=== PATIENT | female | born 1970 | race Caucasian/White ===

== ENCOUNTER → 2019-09-27 15:41 | Outpatient (CLI) | payer OTHER, SELFPAY ==
--- NOTE | 2019-09-27 15:46 | DIET.PN ---
Dietary Progress Note Assessment: 49y F referred to nutrition for new onset DM2 c A1c 7.2 and Fasting BG 183 WT: 386# pt was 400# on 08/06/2019 office visit Labs: A1c 7.2, FBG 183 Pt was shocked that she had DM2, still is in a bit of denial but has made major changes since August including: was drinking mochas daily, 3 pepsi's per day, snacking on cookie dough Instead has been experimenting with low carb diet and has lost 14# in 2mo. Pt has strong sense of smell which leads her to be a picky eater okay with hiding small pieces veggies in things to eat more doesn't like water but okay iced and super cold B: doesn't eat breakfast except sat/sun L: homemade taco salad (used to go to [employer] [facility] and [employer]) D: steak salad (used to have stuffing, corn, green beans, meat) Acceptable Foods: Vegetable: cooked: corn, green beans Raw: all lettuces, cucumber, green zucchini, onion, carrots, tomatoes, olives Fruits: likes all fruits Meat: beef, pork, chicken, bush beans, refried beans, cashews, peanuts, peanut butter Carbs: all except bread Weekend Breakfast: homemade waffles c frozen or fresh strawberries c canned whipped cream or square hashed brown c scrambled egg and tubed sausage (03/09-/ package), water Pt has diet reliant on ultraprocessed foods with high intake sugar sweetened beverages (>200grams added sugar per day which is 100x recommended for age and sex.) Pt has arthritis in knee limiting physical activity. Nutrition Diagnosis: altered nutrition related laboratory values r/t endocrine dysfunction aeb A1c 7.2, FBG 182, reliance on high carb ultraprocessed foods, high intake sugar sweetened beverages, and morbid obesity (386#). Interventions: 1. Discussed physiology of DM2, role of diet and exercise in managing disease. 2. Educated pt on carbohydrate containing foods, portion sizes and proportions. 3. Problem solved several meals with pt to assess learning. 4. Discussed monitoring BG, request BG meter from PCP. 5. Discussed ultraprocessed food and its role in DM2, inflammation, and morbid obesity. Monitoring/Evaluations: f/u in 1mo to assess diet and weight
== END ==
PROVIDERS: Family Provider Family Medicine; PCP Family Medicine; Referring Provider Student in an Organized Health Care Education/Training Program; Visit Provider Student in an Organized Health Care Education/Training Program
DX: E11.9 Type 2 diabetes mellitus without complications (principal); E66.01 Morbid (severe) obesity due to excess calories; Z71.3 Dietary counseling and surveillance
CPT/HCPCS: 97802

== ENCOUNTER → 2022-01-25 12:07 | Outpatient (CLI) | payer OTHER, SELFPAY ==
[2022-01-25 15:02] LABS: BUN Creatinine Ratio 17.4 (6-22); Blood Urea Nitrogen 12 mg/dL (7-17); Calcium 8.6 mg/dL (8.4-10.2); Carbon Dioxide 25 mmol/L (22-32); Chloride 100 mmol/L (98-107); Estimated Glomerular Filt Rate > 60 mL/min (>60); Glucose 149 mg/dL (70-100); HEMOLYSIS < 15 (0-50); Potassium 4.2 mmol/L (3.4-5.1); Sodium 136 mmol/L (137-145)
== END ==
PROVIDERS: PCP Family Medicine; Referring Provider Family Medicine; Visit Provider Family Medicine
DX: U07.1 COVID-19 (principal)
CPT/HCPCS: 36415; 80048

== ENCOUNTER → 2024-04-15 08:54 | Outpatient (CLI) | payer OTHER, SELFPAY ==
[2024-04-15 10:05] LABS: Influenza A - CEPHEID Flu A POSITIVE (NEGATIVE); Influenza B - CEPHEID Flu B NEGATIVE (NEGATIVE); Respiratory Syncytial Virus Negative (Negative)
[2024-04-15 10:06] LABS: COVID-19 CEPHEID 4-PLEX PCR Negative (Negative)
== END ==
PROVIDERS: Visit Provider Nurse Practitioner Family
DX: R50.9 Fever, unspecified (principal); R52 Pain, unspecified; R05.9 Cough, unspecified
CPT/HCPCS: 0241U